=== PATIENT | male | born 1955 | race African-American/Black ===

== ENCOUNTER 2020-01-03 19:55 | Inpatient (IN) | payer MEDICARE, OTHER ==
[~2020-01-03] VITALS: Ht 182.9 cm; Wt 109.5 kg
[~2020-01-03 19:55] MED LIST: ASPI-231 PO; ATOR20TA PO; CHOL20007 PO; FURO40TA4 PO; HYDR25TA4 PO; LISI40TA11 PO; METO-169 PO
[2020-01-03] MEDS ORDERED: ADENOSINE 6 MG/2 ML INJ IV ONE ×2 (20:05→20:15)
[2020-01-03] MEDS ORDERED: METOPROLOL TARTRATE 1MG/1ML-5ML VIAL IV ONE (20:15)
[2020-01-03] MEDS: METOPROLOL TARTRATE 1MG/1ML-5ML VIAL IV SCH ×4 (20:23→20:45)
[2020-01-03 20:52] LABS: Basophils # (auto) 0 10 ^3/uL (0-0.2); Basophils % (auto) 0.7 % (0.0-2.0); Eosinophils # (auto) 0 10 ^3/uL (0-0.8); Eosinophils % (auto) 0.4 % (0.0-7.0); Hematocrit 42.5 % (41.0-53.0); Hemoglobin 13.6 g/dL (13.5-17.5); Lymphocytes # (auto) 0.8 10 ^3/uL (0.4-5.4); Lymphocytes % (auto) 17.8 % (10.0-50.0); Mean Corpuscular Hemoglobin 27.7 pg (28.0-32.0); Mean Corpuscular Hgb Conc. 31.9 g/dL (32.0-36.0); Mean Corpuscular Volume 86.9 fL (80.0-100.0); Monocytes # (auto) 0.5 10 ^3/uL (0-1.3); Monocytes % (auto) 10.7 % (0.0-12.0); Neutrophils # (auto) 3.3 10 ^3/uL (1.6-8.6); Neutrophils % (auto) 70.4 % (37.0-80.0); Nucleated Red Blood Cells % 0.1 %; Platelet Count (auto) 257 10^3/uL (140-450); Red Cell Distribution Width 16.3 % (11.8-14.3); White Blood Cell 4.7 10^3/uL (4.4-10.8)
[2020-01-03 21:06] LABS: BUN/Creatinine Ratio 13.5; Calcium 8.3 mg/dL (8.5-10.1); Magnesium 2.5 mg/dL (1.6-2.6); Potassium 3.7 mmol/L (3.5-5.1)
[2020-01-03 21:11] LABS: Bilirubin, Total 2.9 mg/dL (0.2-1.0); INR 1.41 (0.9-1.15); Partial Thromboplastin Time 27.9 sec (23.0-31.2); Total Protein 7.5 g/dL (6.4-8.2)
[2020-01-03] MEDS ORDERED: GLUCAGON HYDROCHLORIDE (RDNA) 1 MG VIAL IV ONE (21:30)
[2020-01-03] MEDS ORDERED: HETASTARCH 500 ML IV ONE (21:30)
[2020-01-03] MEDS ORDERED: SODIUM CHLORIDE 0.9% 1,000 ML IV ONE (22:15)
[2020-01-04] VITALS (8 sets, daily range): BP systolic 123–131; BP diastolic 80–106
[2020-01-04] MEDS ORDERED: METOPROLOL TARTRATE 25 MG TAB PO ONE (00:30)
[2020-01-04] MEDS ORDERED: ENOXAPARIN SOD 100 MG/1 ML SYRINGE SC ONE (00:30)
[2020-01-04] MEDS ORDERED: NITROGLYCERIN 0.4 MG SL TAB SL PRN (00:30)
[2020-01-04] MEDS ORDERED: ACETAMINOPHEN 325 MG TAB PO PRN (00:30)
[2020-01-04] MEDS ORDERED: TEMAZEPAM 15 MG CAP PO PRN (00:30)
[2020-01-04] MEDS ORDERED: FUROSEMIDE 40 MG/4 ML VIAL IV ONE (00:30)
[2020-01-04] MEDS ORDERED: MORPHINE SULF INJ 2 MG/ML SYRINGE 1ML IV PRN (00:30)
[2020-01-04] MEDS ORDERED: ONDANSETRON HCL 4 MG/2 ML VIAL IV PRN (00:30)
--- NOTE | 2020-01-04 01:40 | NUR ---
Telemetry admit from ER YUNIOR AQUINO admitted to Telemetry unit after NO SBAR received. Patient received in clothing soiled in urine and stool. Patient oriented to MARYSOL RAMIREZ RN primary RN, unit, room, bed, and unit policies regarding patient care and visiting hours. Patient now on continuous telemetry monitoring, tele box # 22 and telemetry reading on arrival to unit is sinus rhythm. Patient placed on bedside oxygen, weighed by bedscale and encouraged to call if they need something. All questions and concerns addressed, patient verbalized understanding. Note: Patient cleansed and placed in clean gown and non-skid socks.
--- NOTE | 2020-01-04 02:00 | NUR ---
BP on arrival is 128/106. Metoprolol 25mg and Lasix 40mg administered as ordered. Will reassess.
--- NOTE | 2020-01-04 02:54 | NUR ---
CRITICAL LAB Received critical lab value for Troponin 0.907. Hospitalist is aware. Cardiology consult has been placed.
--- NOTE | 2020-01-04 03:30 | NUR ---
COVID SWAB Nasopharyngeal specimen collected. Labeled and double bagged to be hand carried to lab.
--- NOTE | 2020-01-04 05:00 | NUR ---
TEMPERATURE ROUND CUTTER OPERATOR obtained and reported an oral temperature of 94.0. patients skin is cool to the touch. Temperature in room increased and blanket placed over patient. Temperature at reassessment is 97.4 orally.
[2020-01-04] MEDS ORDERED: PNEUMOCOCCAL VACC POLYS 25 MCG/0.5 ML VIAL IM ONE (05:15)
[2020-01-04] MEDS: FUROSEMIDE 20 MG/2 ML VIAL IV SCH ×2 (06:33→18:29)
--- NOTE | 2020-01-04 06:36 | NUR ---
Patient awoke confused. Removed telemetry box, nasal cannula, and IV. Gown disheveled at this time. Telemetry box replaced, Nasal cannula placed back in patient's nares. Gown placed back on patient. IV removed completely; catheter is fully intact. IV insertion IV access obtained, via clean sterile technique by inserting 20 gauge catheter at left forearm after 1 attempt. IV secured properly. No trauma to site. Patient tolerated well.
--- NOTE | 2020-01-04 07:00 | NUR ---
OPENING SHIFT NOTE ASSUMED CARE OF PATIENT FROM PORCELAIN ENAMEL REPAIRER RN SONIA. PATIENT WAS CONFUSED AND NAKED IN DIFFERENT BED. REORIENTED PATIENT TO TIME AND SITUATION. INSTRUCTED PATIENT ON POC, PATIENT VERBALIZED UNDERSTANDING. ASSISTED PATIENT BACK TO HIS BED. BED IS IN LOWEST POSITION WITH SIDE RAILS RAISED X2, BED WHEELS LOCKED, BED ALARM ON, AND CALL LIGHT IS WITHIN REACH. WILL CONTINUE TO MONITOR.
[2020-01-04] MEDS: METOPROLOL TARTRATE 50 MG TAB PO SCH (09:49)
[2020-01-04] MEDS: LISINOPRIL 20 MG TAB PO SCH (09:49)
[2020-01-04] MEDS ORDERED: ASPirin 81 mg TAB PO SCH (10:00)
--- NOTE | 2020-01-04 12:50 | NUR ---
Est energy needs 7008-1842 kcal (14-16 kcal/kg BW 117.1kg) Est protein needs 70-94g (0.6-0.8g/kg BW 117.1kg r/t elevated RFT) WIll reassess prn. Addendum: 01/04/20 at [address] Amended: Links added.
--- NOTE | 2020-01-04 13:00 | NUR ---
AT BEDSIDE MD PAYNE AT BEDSIDE. UPDATED MD ON PATIENT'S STATUS, MD IS AWARE. INFORMED MD PATIENT IS COLD AND DIAPHORETIC. BLOOD SUGAR IS 116 AND BLOOD PRESSURE IS 111/82 mmHg, TEMP IS 97.6 F, AND HEART RATE IS 92 BPM. MD WILL PUT IN NEW ORDERS AND ORDERED BILATERAL LOWER EXTREMITY ULTRA SOUND.
[2020-01-04 13:52] LABS: Basophils # (auto) 0 10 ^3/uL (0-0.2); Basophils % (auto) 0.4 % (0.0-2.0); Eosinophils # (auto) 0 10 ^3/uL (0-0.8); Eosinophils % (auto) 0.1 % (0.0-7.0); Hematocrit 42.8 % (41.0-53.0); Hemoglobin 13.4 g/dL (13.5-17.5); Lymphocytes # (auto) 0.6 10 ^3/uL (0.4-5.4); Lymphocytes % (auto) 12.4 % (10.0-50.0); Mean Corpuscular Hemoglobin 27.5 pg (28.0-32.0); Mean Corpuscular Hgb Conc. 31.3 g/dL (32.0-36.0); Monocytes # (auto) 0.5 10 ^3/uL (0-1.3); Monocytes % (auto) 9.5 % (0.0-12.0); Neutrophils # (auto) 3.8 10 ^3/uL (1.6-8.6); Neutrophils % (auto) 77.6 % (37.0-80.0); Nucleated Red Blood Cells % 0.1 %; Platelet Count (auto) 261 10^3/uL (140-450); Red Blood Cells 4.86 10^6/uL (4.5-5.90); Red Cell Distribution Width 16.7 % (11.8-14.3); White Blood Cell 4.9 10^3/uL (4.4-10.8)
[2020-01-04 14:07] LABS: Calcium 8.8 mg/dL (8.5-10.1); Potassium 4.7 mmol/L (3.5-5.1)
[2020-01-04 14:10] LABS: BUN/Creatinine Ratio 12.7; Bilirubin, Total 2.5 mg/dL (0.2-1.0); Total Protein 7.3 g/dL (6.4-8.2)
--- NOTE | 2020-01-04 14:15 | NUR ---
SPOKE WITH BODY DESIGNER AND INFORMED THEM PATIENT IS IN [address] AND IS NEGATIVE FOR COVID. PER TECH THEY WILL BE ON THEIR WAY TO TAKE PATIENT DOWN FOR CT SCAN. INFORMED TECH PATIENT'S NEW ROOM WILL BE [address] WITH TECH VERBALIZED UNDERSTANDING.
--- NOTE | 2020-01-04 14:20 | NUR ---
HAND OFF REPORT GIVEN TO YESICA CROW.
--- NOTE | 2020-01-04 15:10 | NUR ---
CALLED ADVERTISING CLERK. PER ADVERTISING CLERK THEY WERE WAITING FOR PATIENT TO BE TRANSFERRED TO 220 [address] WAS NOT INFORMED. WILL TRANSFER PATIENT TO [address].
--- NOTE | 2020-01-04 15:35 | NUR ---
PATIENT TRANSFERRED TO 220 [address] VIA WHEELCHAIR. PATIENT HAS NO S/S OF DISTRESS/SOB OR PAIN. INFORMED MEDIA SERVICES COORDINATOR SALOME PATIENT WAS TRANSFERRED TO 220 [address].
--- NOTE | 2020-01-04 15:44 | NUR ---
Telemetry admit from YUNIOR MILLER admitted to Telemetry unit after SBAR received. Patient oriented to YESICA AARON RN primary RN, unit, room 220A, bed, and unit policies regarding patient care and visiting hours. Patient requiring 2 person assist to bed. Patient placed on bedside oxygen, weighed by bedscale and encouraged to call if they need something. All questions and concerns addressed, patient verbalized understanding. Bed in low and locked position, rails up x2, no-slip socks on. Bed alarm on.
--- NOTE | 2020-01-04 16:05 | NUR ---
PATIENT OFF UNIT FOR PROCEDURE CT HEAD
--- NOTE | 2020-01-04 16:45 | NUR ---
CRITICAL RESULT RECENT INFARCT IN RIGHT POSTERIOR PARIETAL AND OCCIPITAL LOBE. PAGE TO DR PAYNE TO NOTIFY.
--- NOTE | 2020-01-04 16:46 | NUR ---
PATIENT BACK ON UNIT
--- NOTE | 2020-01-04 17:19 | NUR ---
DR PAYNE AT BEDSIDE
[2020-01-04] MEDS ORDERED: OPTISON 3ml Vial for INJ IV ONE (17:54)
--- NOTE | 2020-01-04 18:28 | NUR ---
URINE SPECIMEN COLLECTED
[2020-01-04 18:45] LABS: Urine Bacteria FEW /hpf (None Seen); Urine Blood Negative /uL (Negative); Urine Mucus FEW (None Seen); Urine Specific Gravity 1.009 (1.001-1.035); Urine WBC 1 /hpf (0 - 3)
[2020-01-04 18:54] LABS: Alcohol, Urine < 3.0 mg/dL (0-10); Amphetamine Screen, Urine NEGATIVE (NEGATIVE); Barbiturate Scree,Urine NEGATIVE (NEGATIVE); Benzodiazephine Screen, Urine NEGATIVE (NEGATIVE); Cannabinoid Screen, Urine NEGATIVE (NEGATIVE); Cocaine Screen, Urine NEGATIVE (NEGATIVE); Opiate Scree,Urine NEGATIVE (NEGATIVE); Phencyclidine Screen, Urine NEGATIVE (NEGATIVE)
--- NOTE | 2020-01-04 19:30 | NUR ---
Opening Shift Note Assumed care of patient. Upon entering room, patient's eye's closed. Patient opens eyes to voice and becomes more responsive with light touch. Patient only oriented to self and able to follow commands. Patient redirected at this time to place, time, and situation. Patient appears to be in no apparent s/s of distress. Fall and safety precautions in place. Call light within reach. Instructed on POC and to call for assist PRN, patient verbalized understanding and in agreement. Will continue to monitor q1hr and PRN.
[2020-01-04] MEDS: ATORVASTATIN 20 MG TAB PO SCH (21:17)
--- NOTE | 2020-01-04 23:03 | NUR ---
TELE OFF PATIENT CONTINUES TO REMOVE TELE STICKERS. THIRD TIME PATIENT FOUND WITH STICKERS REMOVED. PATIENT AGAIN EDUCATED INDICATION/IMPORTANCE OF CONTINUOUS TELE MONITORING, PATIENT NODDED IN AGREEMENT. STICKERS REAPPLIED. WILL CONTINUE TO MONITOR.
--- NOTE | 2020-01-05 03:49 | NUR ---
TELE OFF / IV REMOVED PATIENT TELE LEADS NOTICED TO BE OFF AGAIN. UPON ENTERING ROOM, PATIENT IS FOUND ASLEEP WITH IV WITH CATHETER INTACT FOUND IN PATIENT'S HAND, REMOVED FROM INSERTION SITE AND TELE STICKERS AGAIN REMOVED. STICKER REAPPLIED. WILL START IV LATER WHEN PT MORE AWAKE. WILL CONTINUE TO MONITOR.
[2020-01-05 05:00] VITALS: BP 129/94
--- NOTE | 2020-01-05 05:00 | NUR ---
IV insertion IV access obtained, via clean sterile technique by inserting 22 gauge catheter at left forearm after 2 attempts. IV secured properly. No trauma to site. Patient tolerated well.
[2020-01-05] MEDS: FUROSEMIDE 20 MG/2 ML VIAL IV SCH ×2 (05:22→18:56)
--- NOTE | 2020-01-05 07:30 | NUR ---
RECEIVED PATIENT ASLEEP BUT AROUSABLE WITH LIGHT TOUCH AND NAME CALL. DENIES PAIN AT THIS TIME, NO SOB OR S/S DISTRESS NOTED. BED IN LOW AND LOCKED POSITION, WILL CONTINUE TO MONITOR Q1HR AND PRN. SITTER AT BEDSIDE FOR SAFETY.
[2020-01-05 07:57] LABS: Basophils # (auto) 0 10 ^3/uL (0-0.2); Basophils % (auto) 0.8 % (0.0-2.0); Eosinophils # (auto) 0 10 ^3/uL (0-0.8); Eosinophils % (auto) 0.2 % (0.0-7.0); Hematocrit 40.8 % (41.0-53.0); Lymphocytes % (auto) 22.2 % (10.0-50.0); Mean Corpuscular Hemoglobin 27.8 pg (28.0-32.0); Monocytes # (auto) 0.5 10 ^3/uL (0-1.3); Monocytes % (auto) 11.3 % (0.0-12.0); Neutrophils # (auto) 2.9 10 ^3/uL (1.6-8.6); Neutrophils % (auto) 65.5 % (37.0-80.0); Platelet Count (auto) 247 10^3/uL (140-450); Red Blood Cells 4.69 10^6/uL (4.5-5.90); Red Cell Distribution Width 16.4 % (11.8-14.3); White Blood Cell 4.4 10^3/uL (4.4-10.8)
[2020-01-05 08:00] VITALS: BP 134/88
[2020-01-05 08:09] LABS: Albumin 3.1 g/dL (3.4-5.0); Calcium 8.7 mg/dL (8.5-10.1); Potassium 3.9 mmol/L (3.5-5.1)
[2020-01-05 08:12] LABS: BUN/Creatinine Ratio 14.3; Bilirubin, Total 2.6 mg/dL (0.2-1.0); Total Protein 7.5 g/dL (6.4-8.2)
[2020-01-05 09:00] VITALS: BP 134/88
[2020-01-05] MEDS ORDERED: ENOXAPARIN SOD 100 MG/1 ML SYRINGE SC SCH (10:00)
[2020-01-05] MEDS ORDERED: ENOXAPARIN SOD 80 MG/0.8ML SYRINGE SC SCH (10:00)
--- NOTE | 2020-01-05 10:30 | NUR ---
DR DO AT BEDSIDE, DISCUSSED PLAN OF CARE WITH PATIENT. PER MD, SHE WILL PUT IN PT ORDER
--- NOTE | 2020-01-05 11:43 | NUR ---
AWAITING TO GIVE PATIENT HIS AM MEDICATION, DUE TO ONGOING PROCEDURE AT BEDSIDE
[2020-01-05] MEDS: METOPROLOL TARTRATE 50 MG TAB PO SCH ×2 (11:50→12:59)
[2020-01-05] MEDS: ENOXAPARIN SOD 100 MG/1 ML SYRINGE SC SCH ×2 (11:51→21:27)
[2020-01-05] MEDS: LISINOPRIL 20 MG TAB PO SCH (12:01)
--- NOTE | 2020-01-05 12:55 | NUR ---
EEG- ELECTROENCEPHALOGRAM COMPLETED ON 01/05/2020 @11:31.
[2020-01-05 13:14] VITALS: BP 121/96
[2020-01-05 16:47] VITALS: BP 125/90
--- NOTE | 2020-01-05 19:40 | NUR ---
Opening Shift Note Assumed care of patient, alert and only oriented to self. Sitter at bedside for safety. No S/S of distress/SOB. Patient resting comfortably in bed. Fall and safety precautions in place. Call light within reach. Instructed on POC and to call for assist PRN, patient verbalized understanding and in agreement. Will continue to monitor for changes Q1hr and PRN.
[2020-01-05 21:00] VITALS: BP 148/103
[2020-01-05] MEDS: ATORVASTATIN 20 MG TAB PO SCH (21:27)
[2020-01-06] MEDS ORDERED: AMLO5TAB15 PO (03:20)
--- NOTE | 2020-01-06 05:00 | NUR ---
IV insertion IV access obtained, via clean sterile technique by inserting 20 gauge catheter at right hand after 1 attempt. IV secured properly. No trauma to site. Patient tolerated well.
[2020-01-06 05:16] VITALS: BP 126/100
[2020-01-06] MEDS: FUROSEMIDE 20 MG/2 ML VIAL IV SCH ×2 (06:02→17:30)
[2020-01-06 06:39] LABS: Potassium 3.6 mmol/L (3.5-5.1)
[2020-01-06 06:46] LABS: BUN/Creatinine Ratio 15.4; Bilirubin, Total 1.9 mg/dL (0.2-1.0); Calcium 8.8 mg/dL (8.5-10.1); Total Protein 7.3 g/dL (6.4-8.2)
[2020-01-06] MEDS ORDERED: ADENOSINE 95 MG in GIVE UN-DILUTED 0 ML IV STA (08:07)
--- NOTE | 2020-01-06 08:14 | NUR ---
Opening Shift Note Assumed care of patient, awake and alert. No S/S of distress/SOB or pain. Instructed on POC and to call for assist PRN, will continue to monitor for changes Q1hr and PRN. Sitter present at bedside. Bed locked in lowest position, side rails up x 3, HOB elevated at least 30 degrees and call light is within reach.
--- NOTE | 2020-01-06 08:16 | NUR ---
Patient taken down for stress test
--- NOTE | 2020-01-06 08:45 | NUR ---
PATIENT RETURNED FROM STRESS TEST. NO SIGNS OR SYMPTOMS OF DISTRESS AT THIS TIME. RESPIRATIONS EVEN AND UNLABORED AT THIS TIME. WILL CONTINUE TO MONITOR.
[2020-01-06 09:00] VITALS: BP 110/76
--- NOTE | 2020-01-06 09:30 | NUR ---
PATIENT TAKEN DOWN FOR MRI
--- NOTE | 2020-01-06 10:00 | NUR ---
PATIENT RETURNED FROM MRI. NO SIGNS OR SYMPTOMS OF DISTRESS AT THIS TIME. RESPIRATIONS EVEN AND UNLABORED AT THIS TIME. WILL CONTINUE TO MONITOR.
[2020-01-06] MEDS: METOPROLOL TARTRATE 50 MG TAB PO SCH (10:15)
[2020-01-06] MEDS: LISINOPRIL 20 MG TAB PO SCH (10:17)
[2020-01-06] MEDS: ENOXAPARIN SOD 100 MG/1 ML SYRINGE SC SCH ×2 (10:17→22:51)
--- NOTE | 2020-01-06 12:00 | NUR ---
ss consult Per consult advanced directive information. Patient is in the Covid unit. Mac CROW will provide patient with advanced directive. Addendum: 01/06/20 at 1200 by Deyanira CLARK Amended: Links added.
[2020-01-06 12:52] VITALS: BP 136/78
--- NOTE | 2020-01-06 16:38 | NUR ---
IV insertion IV access obtained, via clean sterile technique by inserting 20 gauge catheter at [facility] after 1 attempt. IV secured properly. No trauma to site. Patient tolerated well. Addendum: 01/06/20 at 1639 by INOCENCIO TORRES RN RN RIGHT
[2020-01-06 17:35] VITALS: BP 138/83
--- NOTE | 2020-01-06 19:26 | NUR ---
Closing Shift Note Endorsed care to day shift RN
[2020-01-06 22:00] VITALS: BP 131/98
[2020-01-06] MEDS: ATORVASTATIN 20 MG TAB PO SCH (22:51)
[2020-01-07 05:00] VITALS: BP 112/75
[2020-01-07] MEDS: FUROSEMIDE 20 MG/2 ML VIAL IV SCH ×2 (06:25→17:28)
--- NOTE | 2020-01-07 07:16 | NUR ---
End of Shift Note Endorsed care to dayshift RN. At this time patient has no s/s of distress or SOB. Sitter at bedside.
[2020-01-07 07:46] LABS: Basophils # (auto) 0 10 ^3/uL (0-0.2); Basophils % (auto) 1.2 % (0.0-2.0); Eosinophils # (auto) 0 10 ^3/uL (0-0.8); Eosinophils % (auto) 0.4 % (0.0-7.0); Hematocrit 42.8 % (41.0-53.0); Hemoglobin 13.4 g/dL (13.5-17.5); Lymphocytes # (auto) 0.9 10 ^3/uL (0.4-5.4); Lymphocytes % (auto) 24.3 % (10.0-50.0); Mean Corpuscular Hemoglobin 27.7 pg (28.0-32.0); Mean Corpuscular Hgb Conc. 31.3 g/dL (32.0-36.0); Mean Corpuscular Volume 88.5 fL (80.0-100.0); Monocytes # (auto) 0.4 10 ^3/uL (0-1.3); Monocytes % (auto) 9.8 % (0.0-12.0); Neutrophils # (auto) 2.5 10 ^3/uL (1.6-8.6); Neutrophils % (auto) 64.3 % (37.0-80.0); Nucleated Red Blood Cells % 0.1 %; Platelet Count (auto) 230 10^3/uL (140-450); Red Blood Cells 4.83 10^6/uL (4.5-5.90); Red Cell Distribution Width 16.9 % (11.8-14.3); White Blood Cell 3.8 10^3/uL (4.4-10.8)
[2020-01-07 08:12] LABS: Calcium 8.6 mg/dL (8.5-10.1); Potassium 3.8 mmol/L (3.5-5.1)
[2020-01-07 08:18] LABS: BUN/Creatinine Ratio 16.7; Bilirubin, Total 1.9 mg/dL (0.2-1.0); Total Protein 7.4 g/dL (6.4-8.2)
[2020-01-07 09:00] VITALS: BP 136/98
[2020-01-07] MEDS: ENOXAPARIN SOD 100 MG/1 ML SYRINGE SC SCH (09:25)
[2020-01-07] MEDS: LISINOPRIL 20 MG TAB PO SCH (09:26)
[2020-01-07] MEDS: METOPROLOL TARTRATE 50 MG TAB PO SCH (09:26)
--- NOTE | 2020-01-07 11:37 | NUR ---
Nutrition Followup Notes Wt: 108.4 kg Pt was with MD at bedside. per pt records pt s/p HIDA scan. pt with no distress noted. pt is currently on cardiac diet with inadequate PO of < 50% x 4 per RN doc Est energy needs 1490-1522 kcal (14-16 kcal/kg BW 117.1kg) Est protein needs 70-94g (0.6-0.8g/kg BW 117.1kg r/t elevated RFT) WIll reassess prn. LABS: BUN 36 H, CREAT 2.15 H DALLIN 1.9 H ALB 3.0 L GI: Pt had 1 BM on 01/04 per RN doc BS: 16 mod risk. Refer to wound assessment report for full details. PES: Obesity aeb pt with a BMI of 35.0 kg/m2 r/t caloric intake in excess of needs Altered nutrition related labs aeb pt with elevated RFTs, LFTs, hypoalb r/t current and chronic medical conditions Comments: Continue to monitor po intake, labs, skin. F/u mod 3-5 days Rec: 1) consider ensure enlive 1 carton bid as PO is low. 2) refer pt to [facility] on DC 3) Continue current plan of care
[2020-01-07 13:00] VITALS: BP 122/95
--- NOTE | 2020-01-07 16:00 | NUR ---
assessment Patient is a 64 year old male who is confused. Per patients mother Janet this is new confusion. Michael Gonzales patient lives home with her and family and functioned independently. Patients PCP is at the [facility]. Michael Gonzales 911 was called due to cough, diarrhea, and shortness of breath. I informed Janet patients post discharge needs to be determined prior to discharge. I informed Janet I will continue to monitor and follow up as appropriate. Janet verbalized understanding. Addendum: 01/07/20 at 1604 by Deyanira CLARK Amended: Links added.
[2020-01-07 17:47] VITALS: BP 130/79
[2020-01-07 22:00] VITALS: BP 133/71
[2020-01-07] MEDS: ATORVASTATIN 20 MG TAB PO SCH (22:17)
[2020-01-07] MEDS: APIXABAN 2.5 MG TAB PO SCH (22:17)
--- NOTE | 2020-01-08 02:40 | NUR ---
IV insertion Per sitter, patient accidently removed IV, pressure dressing applied to site, catheter is intact. IV removal IV DC'd with sterile technique, catheter fully intact. Pressure dressing applied to site. Patient tolerated procedure well. Discharged with aftercare instructions per MD. NOTE: []New IV access obtained, via clean sterile technique by inserting [] gauge catheter at [] after [] attempt(s). IV secured properly. No trauma to site. Patient tolerated procedure well. Addendum: 01/08/20 at 0308 by Carlene James RN Disregard prior note- IV insertion Per nicholeter, patient accidently removed IV, pressure dressing applied, catheter is intact. New IV access obtained, via clean sterile technique by inserting 22 gauge catheter at left hand after 1 attempt. IV secure properly. No trauma to site. Patient tolerated procedure well.
[2020-01-08 05:00] VITALS: BP 131/72
[2020-01-08] MEDS: FUROSEMIDE 20 MG/2 ML VIAL IV SCH (05:52)
--- NOTE | 2020-01-08 07:00 | NUR ---
End of Shift Note Endorsed care to dayshift RN. At this time patient has no s/s of distress or SOB.
[2020-01-08 07:34] LABS: BUN/Creatinine Ratio 18.1; Calcium 8.3 mg/dL (8.5-10.1); Potassium 3.3 mmol/L (3.5-5.1)
--- NOTE | 2020-01-08 08:00 | NUR ---
Patient awake, alert, oriented to person and place. Patient stay clam , no s/s of anxious or agitated. Provide a sitter at bedside. Will continue to monitor.
[2020-01-08 09:00] VITALS: BP 139/90
--- NOTE | 2020-01-08 09:00 | NUR ---
Per BIPIN JAIN a sitterSHANIA notified.
[2020-01-08] MEDS: METOPROLOL TARTRATE 50 MG TAB PO SCH (09:10)
[2020-01-08] MEDS: APIXABAN 2.5 MG TAB PO SCH ×2 (09:10→22:08)
[2020-01-08] MEDS: LISINOPRIL 20 MG TAB PO SCH (09:11)
[2020-01-08] MEDS ORDERED: POTASSIUM CHL 20 Meq TABLET PO ONE (10:30)
[2020-01-08] MEDS ORDERED: AMIODARONE HCL 200 MG TAB PO ONE (10:30)
[2020-01-08 13:00] VITALS: BP 124/74
--- NOTE | 2020-01-08 16:32 | NUR ---
A sitter DC, transfer patient to room 220A. Patient is alert, awake and reoriented to new room. Place a call light within reach, bed alarm on. Instructed patient to call for social service assistant. Will continue to monitor.
--- NOTE | 2020-01-08 19:20 | NUR ---
Received report from Day Shift RN. Zhou. Initial assessment done.
--- NOTE | 2020-01-08 20:00 | NUR ---
Complete assessment done.
[2020-01-08 22:00] VITALS: BP 130/76
[2020-01-08] MEDS: AMIODARONE HCL 200 MG TAB PO SCH (22:08)
--- NOTE | 2020-01-08 22:08 | NUR ---
Meds. as scheduled given @ this time. Pt. given health teachings of the mechanism of actions of these scheduled meds. Pt. verbalized partial understanding.
[2020-01-08] MEDS: ATORVASTATIN 20 MG TAB PO SCH (22:09)
--- NOTE | 2020-01-09 00:30 | NUR ---
Pt. confused and awakened, made a large BM, brown soft stool. Cleansed, washed pt. and provided partial bedbath. Pt. bed linens changed including new chux and new bottom sheets are new and clean. Keep pt. safe and driller multiple spindle bed. Restarted IV access @ the Right Lower FA G # 22. Pt. provided health teachings that he needed an IV access while in the hospital, pt. though confused remains to be cooperative and verbalized partial understanding. Pt. need to be closely watch since pt. is confused intermittently and will pull IV lines and tubes.
--- NOTE | 2020-01-09 03:30 | NUR ---
Pt. is confused when awakens and pulled the IV access @ the Right Lower FA G # 22. Cleansed and washed pt. after making a large BM @ around this time. Bed linens changed including the bottom sheet, new chux, blankets and pillow cases. Keep pt. clean, dry, safe, warm and comfortable in bed.
--- NOTE | 2020-01-09 04:30 | NUR ---
Pt. resting, calm and sleeping @ this time. Keep pt. clean, dry, safe, warm and comfortable in bed. No s/s of pain or discomfort.
--- NOTE | 2020-01-09 07:44 | NUR ---
Patient confused oriented to self only, patient awakens and pulls at IVs according to retail shift supervisor nurse, patient currently has no IV access because he is refusing it to be reinserted. Patient is sleeping at this time. Will attempt to discuss with patient new IV access.
[2020-01-09 09:00] VITALS: BP 135/96
[2020-01-09] MEDS ORDERED: FUROSEMIDE 40 MG TAB PO SCH (10:00)
[2020-01-09] MEDS: AMIODARONE HCL 200 MG TAB PO SCH (10:03)
[2020-01-09] MEDS: APIXABAN 2.5 MG TAB PO SCH (10:03)
[2020-01-09] MEDS: METOPROLOL TARTRATE 50 MG TAB PO SCH (10:04)
[2020-01-09] MEDS: LISINOPRIL 20 MG TAB PO SCH (10:04)
[2020-01-09] MEDS ORDERED: POTASSIUM CHL 20 Meq TABLET PO ONE (10:45)
--- NOTE | 2020-01-09 11:43 | NUR ---
Patient currently oriented to self and place, forgetful. Patient declined pneumonia vaccine, will not allow me to give it to him. [facility]
--- NOTE | 2020-01-09 11:55 | NUR ---
D/C planning Regarding social service consult for SNF placement. Information and choice letter was given to patient mother [facility]. [facility] requested [facility]. Informed [facility] clinical information will be faxed to [facility]. [facility] verbalize understanding d/c plan. Faxed clinical information to [facility]. Per Sonya with [facility] patient has been accepted to room 14b accepting , Dr. Moore. Transportation has been arranged with [id number] via gurney with oxygen, poultry picking machine tender time 6pm. Informed TRISTIN Oneill.
[2020-01-09 13:00] VITALS: BP 134/97
--- NOTE | 2020-01-09 16:07 | NUR ---
report given to austin anne, spoke with male Nurse (did not get name), gave full report.
[2020-01-09 16:35] VITALS: BP 123/92
--- NOTE | 2020-01-09 19:20 | NUR ---
Opening Shift Note Assumed care of patient, awake and alert. No S/S of distress/SOB or pain. Safety measures in place, bed in lowest position, bed rails raised x2, call light within reach. Instructed on POC and to call for assist PRN, will continue to monitor for changes Q1hr and PRN.
--- NOTE | 2020-01-09 19:45 | NUR ---
Patient discharged via EMR. Pt in stable condidiotn, Addendum: 01/09/20 at 1951 by Prerna Garcia RN RN ...stable condition, no S/S of distress, pain or SOB. All belongings sent with pt. Tele box and ID bands removed from patient. All needs addressed upon exit.
== END 2020-01-09 19:45 | DRG 64 ==
LOC: EDBD 19:55 → ER 19:58 → TELE 19:59 → TELE-EAST 01-04 01:56 → TELE-CENTR 01-04 15:44
PROVIDERS: ADMIT Nurse Practitioner; ATTEND Internal Medicine
DX: I63.89 Other cerebral infarction (principal); N17.0 Acute kidney failure with tubular necrosis; I50.23 Acute on chronic systolic (congestive) heart failure; D68.69 Other thrombophilia; I47.1 Supraventricular tachycardia; I42.0 Dilated cardiomyopathy; I13.0 Hypertensive heart and chronic kidney disease with heart failure and stage 1 through stage 4 chronic kidney disease, or unspecified chronic kidney disease; N18.3 Chronic kidney disease, stage 3 (moderate); E66.9 Obesity, unspecified; E78.5 Hyperlipidemia, unspecified; F17.210 Nicotine dependence, cigarettes, uncomplicated; I25.10 Atherosclerotic heart disease of native coronary artery without angina pectoris; I48.91 Unspecified atrial fibrillation; I07.1 Rheumatic tricuspid insufficiency; K72.90 Hepatic failure, unspecified without coma; R16.0 Hepatomegaly, not elsewhere classified; J44.9 Chronic obstructive pulmonary disease, unspecified; I25.2 Old myocardial infarction; Z79.899 Other long term (current) drug therapy; Z79.01 Long term (current) use of anticoagulants; Z91.14 Patient's other noncompliance with medication regimen; R19.7 Diarrhea, unspecified; Z68.37 Body mass index [BMI] 37.0-37.9, adult; Z20.828 Contact with and (suspected) exposure to other viral communicable diseases
CPT/HCPCS: 36415; 70450; 70551; 71045; 76700; 78226; 80048; 80053; 80307; 81001; 82140; 82728; 82962; 83735; 83880; 84484; 85025; 85379; 85610; 85730; 86141; 87426; 93005; 93306; 93886; 93970; 95819; 97110; 97116; 97163; 97530; 99291; G0378; J0153; Q9956

== ENCOUNTER 2020-01-21 12:54 | Inpatient (IN) | payer OTHER ==
[~2020-01-21] VITALS: Ht 182.9 cm; Wt 107.1 kg
[~2020-01-21 12:54] MED LIST changes: +AMLO5TAB15 PO
[2020-01-21 14:10] LABS: Urine WBC None Seen /hpf (0 - 3)
[2020-01-21 14:20] LABS: Eosinophils # (auto) 0 10 ^3/uL (0-0.8); Hemoglobin 12.2 g/dL (13.5-17.5); Lymphocytes # (auto) 0.8 10 ^3/uL (0.4-5.4); Monocytes # (auto) 0.6 10 ^3/uL (0-1.3)
[2020-01-21 14:23] LABS: Basophils # (auto) 0 10 ^3/uL (0-0.2); Basophils % (auto) 0.9 % (0.0-2.0); Eosinophils % (auto) 0.6 % (0.0-7.0); Hematocrit 38.7 % (41.0-53.0); Lymphocytes % (auto) 18.9 % (10.0-50.0); Mean Corpuscular Hemoglobin 26.7 pg (28.0-32.0); Mean Corpuscular Hgb Conc. 31.5 g/dL (32.0-36.0); Mean Corpuscular Volume 84.8 fL (80.0-100.0); Monocytes % (auto) 13.2 % (0.0-12.0); Neutrophils # (auto) 2.9 10 ^3/uL (1.6-8.6); Neutrophils % (auto) 66.4 % (37.0-80.0); Nucleated Red Blood Cells % 0.2 %; Platelet Count (auto) 221 10^3/uL (140-450); Red Blood Cells 4.57 10^6/uL (4.5-5.90); Red Cell Distribution Width 16.5 % (11.8-14.3); White Blood Cell 4.3 10^3/uL (4.4-10.8)
[2020-01-21 14:34] LABS: Albumin 3.1 g/dL (3.4-5.0); Calcium 8.8 mg/dL (8.5-10.1); Potassium 4.2 mmol/L (3.5-5.1)
[2020-01-21 14:39] LABS: BUN/Creatinine Ratio 13.6; Bilirubin, Total 1.3 mg/dL (0.2-1.0)
[2020-01-21 14:49] LABS: Urine Bacteria NONE SEEN /hpf (None Seen); Urine Blood Negative /uL (Negative); Urine Specific Gravity 1.007 (1.001-1.035)
[2020-01-21] MEDS ORDERED: HYDROcodone-ACET 5/325MG TAB PO PRN (17:00)
[2020-01-21] MEDS ORDERED: MORPHINE SULF INJ 2 MG/ML SYRINGE 1ML IV PRN ×2 (17:00)
[2020-01-21] MEDS ORDERED: FUROSEMIDE 100 MG/10ML VIAL IV ONE (17:00)
[2020-01-21] MEDS ORDERED: DOXYCYCLINE 100MG/250ML 250 ML IV SCH (17:00)
[2020-01-21] MEDS ORDERED: ALUM & MAG HYDROX-SIMETH LIQ(MAALOX) 30 ML PO PRN (17:00)
[2020-01-21] MEDS ORDERED: DOXYCYCLINE 100MG/250ML 250 ML IV ONE (17:00)
[2020-01-21] MEDS ORDERED: ACETAMINOPHEN 325 MG TAB PO PRN (17:00)
[2020-01-21] MEDS ORDERED: LORazepam 0.5 MG TAB PO PRN (17:00)
[2020-01-21] MEDS ORDERED: ONDANSETRON HCL 4 MG/2 ML VIAL IV PRN (17:00)
[2020-01-21] MEDS ORDERED: NITROGLYCERIN 0.4 MG SL TAB SL PRN (17:00)
[2020-01-21] MEDS ORDERED: DOCUSATE SOD 100 MG CAP PO PRN (17:00)
[2020-01-21 17:42] LABS: Alcohol, Urine < 3.0 mg/dL (0-10); Amphetamine Screen, Urine NEGATIVE (NEGATIVE); Barbiturate Scree,Urine NEGATIVE (NEGATIVE); Benzodiazephine Screen, Urine NEGATIVE (NEGATIVE); Cannabinoid Screen, Urine NEGATIVE (NEGATIVE); Cocaine Screen, Urine NEGATIVE (NEGATIVE); Opiate Scree,Urine NEGATIVE (NEGATIVE); Phencyclidine Screen, Urine NEGATIVE (NEGATIVE)
[2020-01-21 18:37] VITALS: BP 152/92
[2020-01-21 22:42] VITALS: BP 155/100
[2020-01-22] MEDS ORDERED: hydrALAZINE HCL 25 MG TAB PO PRN (03:00)
[2020-01-22] MEDS: DOXYCYCLINE 100MG/250ML 250 ML IV SCH ×2 (04:54→16:44)
[2020-01-22] MEDS: FUROSEMIDE 40 MG/4 ML VIAL IV SCH ×2 (05:31→18:23)
[2020-01-22 05:44] VITALS: BP 148/109
[2020-01-22 06:52] LABS: Potassium 3.6 mmol/L (3.5-5.1)
[2020-01-22 07:00] LABS: Albumin 3.1 g/dL (3.4-5.0); BUN/Creatinine Ratio 15.7; Bilirubin, Total 1.4 mg/dL (0.2-1.0); Calcium 8.7 mg/dL (8.5-10.1); Total Protein 7.3 g/dL (6.4-8.2)
[2020-01-22 09:00] VITALS: BP 153/110
[2020-01-22] MEDS: METOPROLOL SUCCINATE XL 50 MG TAB PO SCH (09:19)
[2020-01-22] MEDS: ATORVASTATIN 20 MG TAB PO SCH (09:20)
[2020-01-22] MEDS: ASPirin-EC 81 mg tab PO SCH (09:20)
[2020-01-22] MEDS: LISINOPRIL 5 MG TAB PO SCH (09:21)
[2020-01-22] MEDS: APIXABAN 2.5 MG TAB PO SCH ×2 (09:21→21:54)
[2020-01-22] MEDS ORDERED: NIFEdipine ER 30 MG TAB PO SCH (10:00)
[2020-01-22] MEDS ORDERED: ENOXAPARIN SOD 40 MG/0.4 ML SYRINGE SC SCH (10:00)
[2020-01-22 13:05] VITALS: BP 142/102
[2020-01-22 17:00] VITALS: BP 148/113
[2020-01-22] MEDS: DOBUTamine 1000MCG/ML 250 ML IV SCH ×2 (18:51→23:35)
[2020-01-22 22:00] VITALS: BP 128/74
[2020-01-23] MEDS: DOBUTamine 1000MCG/ML 250 ML IV SCH ×2 (01:43→06:56)
[2020-01-23 05:00] VITALS: BP 134/86
[2020-01-23] MEDS: DOXYCYCLINE 100MG/250ML 250 ML IV SCH ×2 (05:15→17:00)
[2020-01-23] MEDS: FUROSEMIDE 40 MG/4 ML VIAL IV SCH ×2 (05:16→18:03)
[2020-01-23] MEDS ORDERED: ADENOSINE 95 MG in GIVE UN-DILUTED 0 ML IV STA (08:09)
[2020-01-23 09:00] VITALS: BP 157/98
[2020-01-23] MEDS: ASPirin-EC 81 mg tab PO SCH (10:48)
[2020-01-23] MEDS: ATORVASTATIN 20 MG TAB PO SCH (10:48)
[2020-01-23] MEDS: APIXABAN 2.5 MG TAB PO SCH ×2 (10:48→23:36)
[2020-01-23] MEDS: LISINOPRIL 5 MG TAB PO SCH (10:50)
[2020-01-23] MEDS: METOPROLOL SUCCINATE XL 50 MG TAB PO SCH (10:50)
[2020-01-23 13:00] VITALS: BP 148/78
[2020-01-23 17:00] VITALS: BP 135/84
[2020-01-23 22:00] VITALS: BP 135/94
[2020-01-23] MEDS ORDERED: DOXYCYCLINE 100 MG TAB/CAP PO SCH (22:00)
[2020-01-24] VITALS (7 sets, daily range): BP systolic 117–142; BP diastolic 65–97
[2020-01-24] MEDS: FUROSEMIDE 40 MG/4 ML VIAL IV SCH ×2 (06:26→17:58)
[2020-01-24] MEDS: ATORVASTATIN 20 MG TAB PO SCH (10:23)
[2020-01-24] MEDS: METOPROLOL SUCCINATE XL 50 MG TAB PO SCH (10:23)
[2020-01-24] MEDS: ASPirin-EC 81 mg tab PO SCH (10:23)
[2020-01-24] MEDS: APIXABAN 2.5 MG TAB PO SCH ×2 (10:23→21:35)
[2020-01-24] MEDS: SACUBITRIL-VALSARTAN 24mg/26mg TAB PO SCH (21:35)
[2020-01-25 05:06] VITALS: BP 124/75
[2020-01-25] MEDS: FUROSEMIDE 40 MG/4 ML VIAL IV SCH ×2 (06:28→17:21)
[2020-01-25 09:00] VITALS: BP 100/54
[2020-01-25] MEDS: METOPROLOL SUCCINATE XL 50 MG TAB PO SCH (09:01)
[2020-01-25] MEDS: SACUBITRIL-VALSARTAN 24mg/26mg TAB PO SCH ×2 (09:01→21:41)
[2020-01-25] MEDS: APIXABAN 2.5 MG TAB PO SCH ×2 (09:01→21:41)
[2020-01-25] MEDS: ATORVASTATIN 20 MG TAB PO SCH (09:01)
[2020-01-25] MEDS: ASPirin-EC 81 mg tab PO SCH (09:01)
[2020-01-25 13:30] VITALS: BP 138/78
[2020-01-25 17:30] VITALS: BP 126/82
[2020-01-25 20:00] VITALS: BP 129/93
[2020-01-25 22:00] VITALS: BP 124/77
[2020-01-26 05:06] VITALS: BP 149/94
[2020-01-26] MEDS: FUROSEMIDE 40 MG/4 ML VIAL IV SCH ×2 (06:16→17:19)
[2020-01-26] MEDS: SACUBITRIL-VALSARTAN 24mg/26mg TAB PO SCH ×2 (08:52→21:50)
[2020-01-26] MEDS: ATORVASTATIN 20 MG TAB PO SCH (08:53)
[2020-01-26] MEDS: METOPROLOL SUCCINATE XL 50 MG TAB PO SCH (08:53)
[2020-01-26] MEDS: APIXABAN 2.5 MG TAB PO SCH ×2 (08:53→21:50)
[2020-01-26] MEDS: ASPirin-EC 81 mg tab PO SCH (08:53)
[2020-01-26 09:00] VITALS: BP 156/107
[2020-01-26 12:52] VITALS: BP 141/96
[2020-01-26 17:00] VITALS: BP 146/99
[2020-01-26 20:00] VITALS: BP 120/69
[2020-01-26 22:00] VITALS: BP 120/69
[2020-01-27] VITALS (7 sets, daily range): BP systolic 113–148; BP diastolic 78–98
[2020-01-27] MEDS: FUROSEMIDE 40 MG/4 ML VIAL IV SCH ×2 (06:17→17:28)
[2020-01-27] MEDS: SACUBITRIL-VALSARTAN 24mg/26mg TAB PO SCH ×2 (09:27→22:54)
[2020-01-27] MEDS: ATORVASTATIN 20 MG TAB PO SCH (09:27)
[2020-01-27] MEDS: ASPirin-EC 81 mg tab PO SCH (09:27)
[2020-01-27] MEDS: APIXABAN 2.5 MG TAB PO SCH ×2 (09:28→22:53)
[2020-01-27] MEDS: METOPROLOL SUCCINATE XL 50 MG TAB PO SCH (09:28)
[2020-01-28 04:35] VITALS: BP 124/72
[2020-01-28] MEDS: FUROSEMIDE 40 MG/4 ML VIAL IV SCH ×2 (06:09→06:43)
[2020-01-28 09:00] VITALS: BP 119/73
[2020-01-28] MEDS: SACUBITRIL-VALSARTAN 24mg/26mg TAB PO SCH (10:03)
[2020-01-28] MEDS: ATORVASTATIN 20 MG TAB PO SCH (10:03)
[2020-01-28] MEDS: ASPirin-EC 81 mg tab PO SCH (10:03)
[2020-01-28] MEDS: APIXABAN 2.5 MG TAB PO SCH (10:03)
[2020-01-28] MEDS: METOPROLOL SUCCINATE XL 50 MG TAB PO SCH (10:04)
[2020-01-28 13:00] VITALS: BP 109/68
== END 2020-01-28 13:15 | DRG 291 ==
LOC: EDBD 12:54 → ER 12:54 → TELE-WESTW 12:55
PROVIDERS: ADMIT Hospitalist; ATTEND Family Medicine
DX: I13.0 Hypertensive heart and chronic kidney disease with heart failure and stage 1 through stage 4 chronic kidney disease, or unspecified chronic kidney disease (principal); N17.0 Acute kidney failure with tubular necrosis; I50.43 Acute on chronic combined systolic (congestive) and diastolic (congestive) heart failure; R18.8 Other ascites; I48.19 Other persistent atrial fibrillation; E44.1 Mild protein-calorie malnutrition; K57.30 Diverticulosis of large intestine without perforation or abscess without bleeding; I25.5 Ischemic cardiomyopathy; N18.9 Chronic kidney disease, unspecified; K76.0 Fatty (change of) liver, not elsewhere classified; D64.9 Anemia, unspecified; E66.9 Obesity, unspecified; F03.90 Unspecified dementia, unspecified severity, without behavioral disturbance, psychotic disturbance, mood disturbance, and anxiety; I25.10 Atherosclerotic heart disease of native coronary artery without angina pectoris; I70.8 Atherosclerosis of other arteries; R06.03 Acute respiratory distress; E78.00 Pure hypercholesterolemia, unspecified; E78.5 Hyperlipidemia, unspecified; R16.0 Hepatomegaly, not elsewhere classified; Z86.73 Personal history of transient ischemic attack (TIA), and cerebral infarction without residual deficits; Z87.891 Personal history of nicotine dependence; Z79.82 Long term (current) use of aspirin; Z82.49 Family history of ischemic heart disease and other diseases of the circulatory system; Z95.810 Presence of automatic (implantable) cardiac defibrillator; Z79.899 Other long term (current) drug therapy; Z83.3 Family history of diabetes mellitus; Z68.32 Body mass index [BMI] 32.0-32.9, adult; Z20.828 Contact with and (suspected) exposure to other viral communicable diseases; I50.82 Biventricular heart failure; J44.9 Chronic obstructive pulmonary disease, unspecified
CPT/HCPCS: 36415; 74176; 78452; 80053; 80061; 80307; 81001; 82140; 82962; 83036; 83690; 83880; 84484; 85025; 87040; 87086; 87426; 93005; 93017; G0378; J0153; J3490